=== PATIENT | male | born 1955 | race Caucasian/White ===

== ENCOUNTER 2016-10-07 20:58 | Emergency (ER) | payer OTHER ==
[~2016-10-07] VITALS: Ht 180.3 cm; Wt 88.0 kg
[~2016-10-07 20:58] MED LIST: LORA-392 PO; LORC10TA PO; METH5TAB PO; Z.0.NO CURRENT MEDS; rifampin PO
[2016-10-07 21:00] VITALS: BP 175/100; PULSE 75; RESP 16; TEMP 97.4; O2SAT 75; O2SAT 95
[2016-10-07] MEDS ORDERED: TETANUS/DIPHTHERIA TOXOID ADULT 0.5 ML VIAL IM ONE (21:30)
[2016-10-07] MEDS ORDERED: ERYTHROMYCIN 0.5% OPTH OINT 3.5 GM TUBO RIGHT EYE ONE (21:30)
[2016-10-07] MEDS ORDERED: ACETAMINOPHEN/HYDROcodone 325 MG/5 MG TAB PO ONE (21:30)
--- NOTE | 2016-10-07 21:31 | PD ---
HPI Chief Complaint: Eye Problems/Injury Time Seen by Provider: 21:26 Travel History International Travel<30 days: No Contact w/Intl Traveler<30days: No Traveled to known affect area: No History of Present Illness HPI 61-year-old white male presents to emergency department with right eye pain. He states that he was struck in the right eye this afternoon sometime around 3: 30 with a tree branch when he was cleaning yard debris. He states the pain was only mild initially but has progressively worsened throughout the day. He denies any visual changes. Mild photophobia. No drainage. Positive tearing. A runny nose and congestion. He has not had a tetanus shot over 5 years. Pain is moderate PFSH Past Medical History Narrative Medical Back injury Blood Disorders: No Anxiety: No Depression: No Cancer: No Cardiovascular Problems: No Endocrine: No Genitourinary: No Immune Disorder: No Musculoskeletal: Yes Psychiatric: No Reproductive: No Respiratory: No Past Surgical History Thoracic Surgery: Yes (SPINAL) Social History Alcohol Use: No Tobacco Use: No Substance Use: No Allergies-Medications (Allergen,Severity, Reaction): Coded Allergies: No Known Allergies (Verified , 10/07/16) Reported Meds & Prescriptions Reported Meds & Active Scripts Active Reported [rifampin] 300 Mg PO BID Lorcet 10/650 (Acetaminophen/Hydrocodone Bitart) Tab 1 Tab PO Q8HPRN FOR PAIN Ativan (Lorazepam) 0.5 Mg Tab 0.5 Mg PO BIDPRN Methadone Hcl (Methadone HCl) 5 Mg Tab 25 Mg PO Q8 UNKNOWN DOSE No Current Meds (Miscellaneous Medication) Misc Review of Systems Except as stated in HPI: all other systems reviewed are Neg Eyes: Positive: Redness, Foreign Body Sensation, Pain, Tearing, No: Diploplia , Blurred Vision, Photophobia, Drainage, Visual changes Physical Exam Narrative GENERAL: Well-developed, well-nourished in no acute distress. Nontoxic appearing. HEAD: Normocephalic, atraumatic. EYES: Pupils equal round and reactive. Extraocular motions intact. No scleral icterus. No injection or drainage in the left eye. The right eye is injected and tearing. A corneal abrasion visualized with the naked eye. No foreign body. Alcaine is instilled in the right eye with resolution of pain. Lids are flipped and no foreign body seen. Fluorescein stain confirms an abrasion at the 9:00 hour ENT: TMs clear without erythema. The external auditory canals clear. Nose: clear . Posterior pharynx is pink and moist. No tonsillar edema or exudate. Uvula midline. Airway patent. NECK: Trachea midline.Supple, nontender, moves head freely. No central bony tenderness or spasm. CARDIOVASCULAR: Regular rate and rhythm without murmurs, gallops, or rubs. RESPIRATORY: Clear to auscultation. Breath sounds equal bilaterally. No wheezes , rales, or rhonchi. GASTROINTESTINAL: Abdomen soft, non-tender, nondistended. No hepato-splenomegaly , or palpable masses. No guarding. EXTREMITIES: No clubbing, cyanosis, or edema. No joint tenderness, effusion, or edema noted. BACK: Nontender without deformity or crepitance. No flank tenderness. Data Data Last Documented VS Vital Signs Date Time Temp Pulse Resp B/P Pulse Ox O2 Delivery O2 Flow Rate FiO2 10/07/16 21:00 97.4 75 16 175/100 95 Room Air Orders Tetanus/Diphtheria Tox Adult (Tetanus/Di (10/07/16 21:30) Erythromycin 0.5% Opth Oint (Ilotycin 0. (10/07/16 21:30) MDM Medical Decision Making Medical Screen Exam Complete: Yes Emergency Medical Condition: Yes Medical Record Reviewed: Yes Differential Diagnosis MDM: High Differential diagnoses: Acute conjunctivitis (bacterial, viral, allergic, traumatic), glaucoma, iritis, traumatic globe injury, foreign body, corneal abrasion, corneal ulcer, diabetic retinopathy, photokeratitis, herpes keratitis , CMV retinitis Narrative Course Patient's given Lortab 5 milligrams, erythromycin ointment and tetanus immunization. This is right corneal abrasion Diagnosis Primary Impression: Right corneal abrasion Qualified Code: S05.01XA - Right corneal abrasion, initial encounter Patient Instructions: Narcotic given in the ED, General Instructions Departure Forms: Tests/Procedures, Work Release Special Instructions: No work 10/08/16 Additional Instructions: Rest. Erythromycin ointment one ribbon to the right eye 4 times daily Followup with an eye doctor in 48 hours if symptoms have not resolved.. Follow-up with a medical doctor one week. Return to the ER if any problems. Med/Other Pt SpecificInfo: Prescription(s) given Disposition: DISCHARGE HOME Condition: Stable Cornelius Day Oct 07, 2016 21:31
== END 2016-10-07 22:18 | disposition home or self-care (01) ==
LOC: NETRI 20:58
DX: S05.01XA Injury of conjunctiva and corneal abrasion without foreign body, right eye, initial encounter (principal); S00.211A Abrasion of right eyelid and periocular area, initial encounter; W22.8XXA Striking against or struck by other objects, initial encounter; Y93.H2 Activity, gardening and landscaping; Y92.9 Unspecified place or not applicable; Y99.9 Unspecified external cause status
CPT/HCPCS: 90471; 90714